=== PATIENT | female | born 1940 | race Caucasian/White ===

== ENCOUNTER 2020-06-29 18:47 | Inpatient (IN) | payer OTHER ==
[~2020-06-29] VITALS: Ht 152.4 cm; Wt 61.2 kg
== END 2020-07-03 14:05 | disposition home or self-care (01) | DRG 390 ==
LOC: ER 18:47 → SURH 22:48 → SURG 23:46
PROVIDERS: ADMIT Surgery; ATTEND Surgery
PROC: BW21ZZZ Computerized Tomography (CT Scan) of Abdomen and Pelvis (ICD-10-PCS; principal; 2020-06-29)
PROC: CW2 Nuclear Medicine, Anatomical Regions, Tomographic (Tomo) Nuclear Medicine Imaging (ICD-10-PCS; 2020-07-01)
DX: K56.51 Intestinal adhesions [bands], with partial obstruction (principal); K56.41 Fecal impaction; Z20.822 Contact with and (suspected) exposure to COVID-19

== ENCOUNTER 2020-07-11 09:48 | Outpatient (CLI) | payer OTHER | END 2020-07-11 15:10 | disposition home or self-care (01) | LOC: LAB 09:48 | PROVIDERS: ATTEND Surgery | DX: Z11.59 Encounter for screening for other viral diseases (principal) ==

== ENCOUNTER 2025-01-16 12:39 | Outpatient (CLI) | payer OTHER | END 2025-01-16 12:47 | disposition home or self-care (01) | LOC: MAMO-SONO 12:39 | PROVIDERS: ATTEND Internal Medicine Rheumatology | DX: Z12.31 Encounter for screening mammogram for malignant neoplasm of breast (principal) ==